=== PATIENT | female | born 1955 ===

== ENCOUNTER 2018-09-04 15:00 | Outpatient (RCR) | payer BC | END 2018-09-04 16:00 | disposition home or self-care (01) | DRG 561 | LOC: PT 15:00 | DX: Z47.89 Encounter for other orthopedic aftercare (principal); M25.512 Pain in left shoulder; Z98.890 Other specified postprocedural states; M75.102 Unspecified rotator cuff tear or rupture of left shoulder, not specified as traumatic ==